=== PATIENT | male | born 1950 | race Caucasian/White ===

== ENCOUNTER 2023-05-10 07:30 | Outpatient (CLI) | payer MEDICARE, SELFPAY ==
--- NOTE | ~2023-05-10 | XR_ITS ---
XR chest 2V 05/10/2023 08:25 Indication: Incisional hernia without obstruction Procedure: 2 view chest Comparison: No prior studies for comparison. Findings: Status post median sternotomy for CABG. Heart size normal. No focal air space disease, pulm onary edema, pleural effusion or suspected pneumothorax. Impression: 1: No acute cardiopulmonary disease. Reviewed, dictated and finalized at location B. Impression: 1: No acute cardiopulmonary disease.
--- NOTE | 2023-05-10 07:53 | ECG_ITS ---
Measurements Intervals [place] Rate: 60 P: 6 UT: 181 QRS: 15 QRSD: 110 T: 33 QT: 416 QTc: 418 Interpretive Statements SINUS RHYTHM DELAYED PRECORDIAL R/S TRANSITION BASELINE ARTIFACT- I, II, III, AVR, AVL, AVF BORDERLINE ECG NO PREVIOUS ECG AVAILABLE FOR COMPARISON Electronically Signed On 05-10-2023 8:14:48 CDT by Usman Kiran D.O.
[2023-05-10 08:31] LABS: Basophils Absolute Auto 0.1 K/mm3 (0.0-0.1); Basophils Percent Auto 0.5 % (0.2-1.2); Eosinophils Absolute Auto 0.4 K/mm3 (0-0.3); Eosinophils Percent Auto 3.8 % (0-4.4); Hematocrit 48.1 % (42.0-52.0); Hemoglobin 15.8 g/dL (14.0-18.0); Immature Granulocyte Absolute 0.03 K/mm3 (0.00-0.031); Immature Granulocyte Percent A 0.3 % (0-0.5); Mean Corpuscular HGB Conc 32.8 g/dl (32-36); Mean Corpuscular Hemoglobin 31.1 pg (26-34); Mean Corpuscular Volume 94.7 fl (80-100); Mean Platelet Volume 8.8 fl (7.4-10.4); Monocytes Absolute Auto 0.7 K/mm3 (0.1-0.6); Monocytes Percent Auto 7.5 % (2.6-8.5); Neutrophils Absolute Auto 5.6 K/mm3 (1.3-6.7); Neutrophils Percent Auto 60.9 % (45.5-73.1); Platelet Count Result 250 k/mm3 (150-375); Red Blood Count 5.08 M/mm3 (4.6-6.20); Red Cell Distribution Width 14.3 % (11.5-14.5); White Blood Count 9.3 K/mm3 (4.5-10.0)
[2023-05-10 08:40] LABS: Anion Gap 9 mmol/L (8-16); Blood Urea Nitrogen 18 mg/dL (9-20); Calcium 8.9 mg/dL (8.4-10.2); Carbon Dioxide 26 mmol/L (22-30); Chloride 103 mmol/L (98-107); Estimated Glomerular Filt Rate 54; Glucose 124 mg/dL (65-110); Potassium 4.3 mmol/L (3.4-5.0); Sodium 138 mmol/L (137-145)
== END 2023-05-10 07:31 | disposition home or self-care (01) ==
LOC: ANHSURGERY 07:35
PROVIDERS: PCP Internal Medicine; Visit Provider Surgery
DX: K43.2 Incisional hernia without obstruction or gangrene (principal)
CPT/HCPCS: 36415; 71046; 80048; 85025; 86850; 86900; 86901; 93005

== ENCOUNTER 2023-05-18 14:45 | Observation (INO) | payer MEDICARE, SELFPAY ==
--- NOTE | 2023-05-08 12:41 | PC.NURSE ---
Report to the Outpatient Waiting Room, entrance under the green pavilion located off [facility], at time ___30____ on date _05/17/23 . Planned Procedure Time: __829 . Time changes happen often and if your time is changed the preop area will call you the afternoon before. - You and your visitor will be asked to self-screen and do not enter if you have any COVID symptoms. - A mask is optional within the hospital at this time. Patients may have clear liquids (water, carbonated beverages, clear teas, apple juice) until 3 hours prior to surgery with a maximum of 20 ounces. - No food from midnight until time of surgery - Infants may have breast milk until 4 hours before surgery, infant formula 6 hours prior to surgery. - Children will be allowed to drink immediately following surgery. If applicable, please bring a bottle or sippy cup to assist with drinking. Juice, water, soda, and popsicles are readily available. For infants on formula, please bring formula the day of surgery. Pacifiers are allowed. Take the following medications with a SIP of water the morning of surgery: ____AMLODIPINE,METOPROLOL DO NOT STOP ANY OF YOUR OTHER PRESCRIPTION MEDICATIONS PRIOR TO SURGERY ?EXCEPT THE FOLLOWING Medications to discontinue per physician ___ALL VITAMINS AND SUPPLEMENTS 3 DAYS PRE OP.LAST DOSE 05/13/23 HIBICLENS SHOWER MORNING OF SURGERY Please no make-up, nail indian, hairspray, perfume, deodorant, or body powder the day of surgery. No jewelry (including any body piercings) or valuables the day of surgery, leave them at home. Please take a shower or bath the night before, or the morning of, surgery with an antibacterial soap. Wear comfortable, loose fitting clothing. Children are encouraged to wear pajamas. - Jewelry must be removed prior to entering the operating room. Rings and piercings that are not removed may be cut off. - The hospital will not accept responsibility for valuables. - Please leave all valuables, including medications, at home the day of surgery. If you are going home after surgery, a licensed regional driver must drive you home. - NO public transportation without another adult if you receive anesthesia. - We recommend that an adult stay with you for 24 hours following discharge. - We also recommend that you do not drive, make important decision, drink alcoholic beverages, or take any drugs that were not prescribed by your health care provider for at least 24 hours after your discharge time. For Pediatric surgeries, we recommend two adults accompany the child home. Follow any additional instructions given to you from your surgeon. If you or anyone in your household have experienced Covid symptoms in the past week, please notify your surgeon or the nurse liaison at the phone number below for possible testing. Telephone instructions given to _PATIENT AND WIFE and asked if any additional questions and then verbalized understanding. Patient advised to call surgeon office or pre surgery nurse liaison [phone] if any additional questions.
[2023-05-08 12:51] VITALS: BMI 33.9
--- NOTE | 2023-05-15 18:00 | PM.IMHP ---
H&P: HPI History of Present Illness Date/Time: 05/15/23 18:00 Chief Complaint: Abdominal hernias Narrative: Patient is a 72-year-old man who, in 2016, had coronary artery bypass grafting. Eight days after his bypass surgery, he developed a perforated gastric ulcer and underwent open abdominal repair. He recovered from that surgery but eventually went on to notice abdominal bulging particularly on the left side. He was seen in [place] and had a CT scan of the abdomen and pelvis. I received the disc of that CT scan. It shows multiple hernias. The largest has a 6.7 cm defect and a 2nd hernia has a 6 cm defect. He appears to have some chronically eviscerated small bowel but no signs of obstruction. The hernias have been getting larger and are uncomfortable. He was seen in the office and is now taken to surgery for open repair with mesh and posterior component separation. Review of Systems Review of Systems: All systems reviewed & are unremarkable except as noted in HPI and below (HPI and those items noted below) Constitutional: Constitutional: Denies chills and Denies fever(s) Cardiovascular: Cardiovascular: Denies chest pain, Denies diaphoresis, Denies dyspnea and Denies paroxysmal nocturnal dyspnea Respiratory: Respiratory: Denies chest congestion, Denies cough and Denies dyspnea Integumentary/Breasts: Skin/Breast: Denies lesions and Denies rash PMFSH Past Medical History Medical History (Updated 05/15/23 @ 18:09 by Tk Stephen MD) Heart attack Hypertension Surgical History Surgical History (Updated 05/15/23 @ 18:08 by Tk Stephen MD) Perforated gastric ulcer Surgery 07/2017 S/P triple vessel bypass Social History Social History Smoking status: Never smoker Alcohol intake: never Substance use: never Living arrangements: with family Occupation/Education: retired Gender identity (if verbalized by the patient): Male Sexual Orientation (if Verbalized by the Patient): Straight or Heterosexual Spiritual care concerns: No Meds Home Medications and Allergies Home Medications Medication Instructions Recorded Confirmed Type aspirin 81 mg capsule 81 mg PO DAILY 03/16/23 05/08/23 History folic acid 400 mcg tablet 0.4 mg PO BID 03/16/23 05/08/23 History lisinopril 40 mg tablet 40 mg PO DAILY 03/16/23 05/08/23 History magnesium oxide 400 mg PO DAILY 03/16/23 05/08/23 History metoprolol tartrate 100 mg tablet 100 mg PO BID 03/16/23 05/08/23 History poqqdhce-zjt-[id number] 150 mcg-vit K1 1 tablet PO DAILY 03/16/23 05/08/23 History 30 mcg-lycop 300 mcg-lutein tablet (Centrum Minis Men 50 Plus) omeprazole 40 mg capsule,delayed 40 mg PO DAILY 03/16/23 05/08/23 History release rosuvastatin 40 mg tablet 40 mg PO DAILY 03/16/23 05/08/23 History vitamin E mixed 400 unit capsule 400 unit PO DAILY 03/16/23 05/08/23 History amlodipine 10 mg tablet 10 mg PO DAILY 05/08/23 05/08/23 History Allergies Allergy/AdvReac Type Severity Reaction Status Date / Time No Known Allergies Allergy Verified 05/08/23 12:29 Exam Const: General: comfortable, no acute distress, alert and awake HENMT: Head: normocephalic and atraumatic Mouth: Yes Normal oral and palatal mucosa present Eyes: Conjunctivae: conjunctivae normal Pupils: Equal, round and reactive pupils present EOM: EOMs intact bilaterally Neck: Neck: normal visual inspection, no lymphadenopathy and nontender Chest: Chest palpation & inspection: abnormal inspection of the chest (Median sternotomy scar), no tenderness and No rash Resp: Effort & Inspection: normal respiratory effort Auscultation: clear to auscultation bilaterally Cardio: Rate: regular rate Rhythm: regular rhythm Heart sounds: no gallops, no murmurs and no rubs GI: Inspection: non-distended, scar (Upper abdominal midline scar) and visible herniation GI Palp: Yes Soft to palpation, No Tenderness to palpation
[2023-05-17] VITALS (17 sets, daily range): BP systolic 101–140; BP diastolic 39–107; PULSE 65–74; RESP 14–18; TEMP 36.2–37.2; O2SAT 92–100
[2023-05-17] MEDS: KETOROLAC 15 MG/ML VIAL (*BKC) IV PUSH (07:00)
[2023-05-17] MEDS: LACTATED RINGERS 1,000 ML 30 ML IV CONT ×2 (07:00→12:47)
[2023-05-17] MEDS: ACETAMINOPHEN 500 MG TABLET 1000 MG PO (07:00)
--- NOTE | 2023-05-17 08:14 | P.PNAN_ITS ---
Anes - Initial Pre Proc Eval Procedure: Operation Date: 05/17/23 08:30 Proposed Procedures p Incisional Hernia Repair with Mesh, Bilateral Posterior Component Separation - Tk Stephen MD Date/Time: 05/17/23 08:14 Surgeon: Tk Stephen MD Pre Op Diagnosis: incisional hernia Patient Data Age: 72 Gender: M Height: 1.83 m Weight: 113.4 kg Allergies Allergy/AdvReac Type Severity Reaction Status Date / Time No Known Allergies Allergy Verified 05/17/23 08:16 Home Medications Medication Instructions Recorded Confirmed Type aspirin 81 mg capsule 81 mg PO DAILY 03/16/23 05/08/23 History folic acid 400 mcg tablet 0.4 mg PO BID 03/16/23 05/08/23 History lisinopril 40 mg tablet 40 mg PO DAILY 03/16/23 05/08/23 History magnesium oxide 400 mg PO DAILY 03/16/23 05/08/23 History metoprolol tartrate 100 mg tablet 100 mg PO BID 03/16/23 05/08/23 History femqdlon-xov-mvhxm 150 mcg-vit K1 1 tablet PO DAILY 03/16/23 05/08/23 History 30 mcg-lycop 300 mcg-lutein tablet (Centrum Minis Men 50 Plus) omeprazole 40 mg capsule,delayed 40 mg PO DAILY 03/16/23 05/08/23 History release rosuvastatin 40 mg tablet 40 mg PO DAILY 03/16/23 05/08/23 History vitamin E mixed 400 unit capsule 400 unit PO DAILY 03/16/23 05/08/23 History amlodipine 10 mg tablet 10 mg PO DAILY 05/08/23 05/08/23 History Patient hx anesthesia problems: none Family hx anesthesia problems: none Results Review: All pre-operative results and documents have been reviewed as part of the pre- operative evaluation. [facility] Past Medical History Medical History (Updated 05/15/23 @ 18:09 by Tk Stephen MD) Heart attack Hypertension Surgical History Surgical History (Updated 05/15/23 @ 18:08 by Tk Stephen MD) Perforated gastric ulcer Surgery 07/2017 S/P triple vessel bypass Social History Social History Smoking status: Never smoker Alcohol intake: never Substance use: never Living arrangements: with family Occupation/Education: retired Gender identity (if verbalized by the patient): Male Sexual Orientation (if Verbalized by the Patient): Straight or Heterosexual Spiritual care concerns: No Anes - Eval Final PreProcedure Day of Procedure 05/17/23 08:14 Patient weight: obese Heart: regular rate and rhythm Lungs: clear to auscultation Airway: Mallampati scale class II Neurological: alert and oriented Last oral intake: >/= 8 hours ASA classification: III Emergent: no Anesthetic plan: proceed Anesthesia type and monitoring: general ETT and standard monitoring Results Review: All pre-operative results and documents have been reviewed as part of the pre- operative evaluation. Informed Consent: The patient's anesthetic plan and its attendant risks and benefits were discussed with the patient/family/POA. Questions were solicited and answers provided to the satisfaction of the patient/family/POA.
--- NOTE | 2023-05-17 08:20 | WPDHPUPDATE1 ---
History and Physical Update Update Date/Time: 05/17/23 08:20 History and Physical has been reviewed, including an updated exam of the patient. There are NO changes in the patient's condition. Risks, benefits, and alternatives have been discussed and questions answered. Patient agrees to proceed with procedure.
[2023-05-17] MEDS: ceFAZolin 2 GM/D5W 50 ML 2 GM/50 ML BAG IVPB (08:39)
[2023-05-17] MEDS: ceFAZolin SODIUM 1 GM VIAL IV PUSH (12:30)
--- NOTE | 2023-05-17 13:02 | W.PM.PROC2 ---
Procedure Note - Detailed Date of Procedure 05/17/23 Pre-op Diagnosis incisional hernia Post-op Diagnosis Same Procedure Performed Repair incisional hernia with mesh, bilateral transversus myofascial flap advancement, 10 cm on the left, 3 cm on the right. Surgeon Tk Stephen MD Cloth Cutting Machine Operator Allie Alatorre, MARILEE Anesthesia General Indications Patient had perforated stomach ulcer in 2017 about a week after coronary bypass surgery. He recovered from this problem but went on to develop several incisional hernias with chronic evisceration in the left side of the abdomen. He is having pain particularly in the herniated mass on the left side of the abdomen. He is taken to surgery now for hernia repair with posterior component separation. Findings Patient had at least 3 large incisional hernias. They were all above the umbilicus and stretched nearly to the xiphoid. The predominant defect was on the left side of the abdomen resulting in flap advancement on that side of 10 cm but the right side only 3 cm. Two pieces of soft polypropylene mesh were placed. These were placed in valarie fashion providing excellent overlap of the hernias. Description of Procedure Patient was taken to surgery and induced into general anesthesia. Campbell catheter was placed. The abdomen was prepped and draped. His previous scar was excised from the abdominal skin and discarded. Cautery was used for hemostasis. We dissected a short ways into the subcutaneous and encountered the large hernia sac that was predominantly on the left side of midline. I extended the initial incision a few cm caudal to the umbilicus. I then dissected around the large supraumbilical hernia that had chronic evisceration. The hernia sac was opened and excised. The sac was discarded. I opened the fascia below this hernia on down below the umbilicus in the midline. I then went back and dissected out the other 2 hernias. Some anterior abdominal wall adhesions were encountered and were taken down using some blunt dissection as well as cautery. The other 2 hernia sacs were excised and discarded as well. Eventually the undersurface of the anterior abdominal wall was clear of all adhesions and we were able to begin the hernia repair. I started on the patient's right side, working on his left side abdominal wall. The posterior rectus fascia was incised very close to the midline. I then dissected some more the posterior rectus fascia above and below this initial opening and opened this as well. I then began dissecting, in that area, the posterior rectus fascia from the rectus muscle. I was then able to place a finger between the posterior rectus fascia and the rectus muscle close to the midline and opened the cephalad and caudad posterior rectus fascia in similar fashion. I dissected more of the posterior rectus fascia off the rectus abdominus muscle. I took care to preserve the neural innervation to the rectus muscle at its lateral aspect. I then continued this dissection of the patient's left side abdominal wall cephalad such that the posterior rectus fascia was divided up to the xiphoid and also some dissection posterior to the xiphoid process was carried out. The posterior rectus fascia was dissected off the rectus muscle at this cephalad aspect as well. I then continued this dissection of the posterior rectus fascia, dividing the posterior rectus fascia caudally. This dissection was able to be carried out such that I was able to dissect in the retropubic space. This completed the retro rectus dissection on the patient's left side. I then went to the patient's left side and began the same procedure on the right side of his abdominal wall. The posterior rectus fascia was opened near the midline. Careful dissection was used to extend this incision cephalad and caudad. Additional careful dissection was used to separate the posterior rectus fascia from the undersurface of the rectus muscle. Again, care was ta
[2023-05-17] MEDS: fentaNYL CITRATE INJ (*CRX) 100 MCG/2 ML VIAL 25 MCG IV PUSH ×5 (13:11→14:32)
--- NOTE | 2023-05-17 15:15 | ADMGEN ---
This patient, Jules Quinonez, was admitted to [facility] Surg Room 309-01. Patient/family oriented to hospital policies and general routines including ID bracelet, bed and alarms, visiting hours, pain management, procedures, bathroom and other care routines, personal items, smoking policy, room service/diet, and visiting hours. Information on how to activate the Rapid Response Team has been discussed. Patient/Family are encouraged to report perceived risks to care and to ask questions if they do not understand what they are told or what they should do.
[2023-05-17] MEDS: LACTATED RINGERS 1,000 ML 100 ML IV CONT (15:44)
[2023-05-17] MEDS: IBUPROFEN IV 800 MG/200 ML 800 MG/200 ML BAG 400 MG IVPB (15:52)
[2023-05-17] MEDS: HYDROcodone/acetaminophen (*CRX) 10-325 MG TABLET 1 TAB PO (18:00)
[2023-05-17] MEDS: METOPROLOL TARTRATE 50 MG TAB 100 MG PO (20:28)
[2023-05-17] MEDS: SENNA/DOCUSATE SODIUM TABLET 2 TAB PO (20:30)
[2023-05-17] MEDS: ENOXAPARIN 30 MG/0.3 ML SYRINGE SUB-Q (20:30)
[2023-05-18] VITALS (7 sets, daily range): BP systolic 111–134; BP diastolic 69–73; PULSE 71–87; RESP 12–20; TEMP 36.4–37.1; O2SAT 93–100
[2023-05-18] MEDS: LACTATED RINGERS 1,000 ML 100 ML IV CONT ×2 (01:40→12:26)
[2023-05-18] MEDS: HYDROcodone/acetaminophen (*CRX) 10-325 MG TABLET 1 TAB PO ×3 (01:48→16:27)
[2023-05-18 07:30] LABS: Hematocrit 42.2 % (42.0-52.0); Hemoglobin 14.1 g/dL (14.0-18.0); Mean Corpuscular HGB Conc 33.4 g/dl (32-36); Mean Corpuscular Hemoglobin 31.3 pg (26-34); Mean Corpuscular Volume 93.6 fl (80-100); Mean Platelet Volume 8.9 fl (7.4-10.4); Platelet Count Result 216 k/mm3 (150-375); Red Blood Count 4.51 M/mm3 (4.6-6.20); Red Cell Distribution Width 14.5 % (11.5-14.5); White Blood Count 16.3 K/mm3 (4.5-10.0)
[2023-05-18 07:57] LABS: Anion Gap 4 mmol/L (8-16); Blood Urea Nitrogen 23 mg/dL (9-20); Calcium 8.2 mg/dL (8.4-10.2); Carbon Dioxide 30 mmol/L (22-30); Chloride 102 mmol/L (98-107); Estimated CRCL calculation 60 ml/min; Estimated Glomerular Filt Rate 54; Glucose 120 mg/dL (65-110); Potassium 4.6 mmol/L (3.4-5.0); Sodium 136 mmol/L (137-145)
--- NOTE | 2023-05-18 08:56 | WPDANESPN ---
Anes - Prog Note Post-Op Date/Time: 05/18/23 08:56 Cardiovascular status: normal Respiratory status: normal Airway patency: baseline Mental status: baseline Post-Op hydration status: normal Vital Signs: Last Vital Signs Temp 37.1 C 05/18/23 04:00 Pulse 73 05/18/23 04:00 Resp 20 05/18/23 04:00 BP 117/69 05/18/23 04:00 Pulse Ox 94 05/18/23 04:00 O2 Del Method Nasal Cannula 05/18/23 00:03 O2 Flow Rate 1 05/18/23 00:03 FiO2 24 05/18/23 00:03 Pain Score (VAS): 11/04 I/O: Intake & Output 05/17/23 05/18/23 05/18/23 23:59 07:59 15:59 Intake Total 250 1000 Output Total 250 332 Balance 0 668 Laboratory Tests 05/18/23 07:08 05/18/23 07:08 05/18/23 07:08 WBC 16.3 H RBC 4.51 L Hgb 14.1 Hct 42.2 MCV 93.6 MCH 31.3 MCHC 33.4 RDW 14.5 Plt Count 216 MPV 8.9 Sodium 136 L Potassium 4.6 Chloride 102 Carbon Dioxide 30 Anion Gap 4 L BUN 23 H Creatinine 1.30 Estim Creat Clear Calc 60 Estimated GFR 54 L Glucose 120 H Calcium 8.2 L Post-procedural complaints: none Patient Feedback: Patient satisfied with anesthetic care.
[2023-05-18] MEDS: polyethylene glycoL 3350 17 GM POWD.PACK PO (09:10)
[2023-05-18] MEDS: ASPIRIN 81 MG CHEWABLE TABLET PO (09:10)
[2023-05-18] MEDS: ROSUVASTATIN 10 MG TABLET 40 MG PO (09:10)
[2023-05-18] MEDS: FOLIC ACID 0.4 MG TABLET PO ×2 (09:10→16:27)
[2023-05-18] MEDS: lisinopriL 20 MG TABLET 40 MG PO (09:11)
[2023-05-18] MEDS: MAGNESIUM OXIDE 400 MG TABLET PO (09:11)
[2023-05-18] MEDS: amLODIPine BESYLATE 5 MG TABLET 10 MG PO (09:11)
[2023-05-18] MEDS: ENOXAPARIN 40 MG/0.4 ML SYRINGE SUB-Q (09:11)
[2023-05-18] MEDS: METOPROLOL TARTRATE 50 MG TAB 100 MG PO ×2 (09:11→22:03)
--- NOTE | 2023-05-18 10:11 | PM.PNGS ---
Progress Note: A&P Assessment and Plan (1) Incisional hernia: Qualifiers: Obstruction and gangrene presence: without obstruction or gangrene Qualified Code(s): K43.2 - Incisional hernia without obstruction or gangrene Code(s): K43.2 - Incisional hernia without obstruction or gangrene Status: Chronic Assessment and Plan: Postop day 1 and doing well. Will get patient up to chair and try ambulating today. Will remove Campbell catheter later today if he tolerates activity. Advance to low fiber diet Wean off O2 (2) Hx of CABG: Code(s): Z95.1 - Presence of aortocoronary bypass graft Status: Chronic (3) History of AL (myocardial infarction): Code(s): I25.2 - Old myocardial infarction Status: Chronic (4) Perforated gastric ulcer: Qualifiers: Gastric ulcer chronicity: unspecified ulcer chronicity Qualified Code(s): K25.5 - Chronic or unspecified gastric ulcer with perforation Code(s): K25.5 - Chronic or unspecified gastric ulcer with perforation Status: Chronic Assessment and Plan: History of perforated gastric ulcer in 2017. Continue PPI (5) Hypertension: Code(s): I10 - Essential (primary) hypertension Status: Chronic Assessment and Plan: BP stable. Continue home medications. Plan I have discussed the patient's case and plan of care with Dr. Stephen. Subjective Subjective Date/Time Seen: 05/18/23 10:11 Post Op day: 1 (Repair incisional hernia with mesh, bilateral transversus myofascial flap advancement) Patient reports: tolerating liquids well, flatus (little), no bowel movement and afebrile Interval history: Patient doing well today. Reports having expected post-op soreness, but no significant abdominal pain. No nausea, vomiting, or bloating. He has tolerated clear liquids, which he also had for breakfast. He is passing some flatus. Has sat on the edge of the bed, but not been up ambulating yet. MALU drain with nearly no output from the RLQ drain and 80 cc output from the LLQ drain overnight and 150 cc total out yesterday after surgery. Review of Systems Review of Systems: All systems reviewed & are unremarkable except as noted in HPI and below Constitutional: Constitutional: Reports no additional constitutional complaints, Denies chills, Denies fever(s) and Denies headache(s) Cardiovascular: Cardiovascular: Reports no additional cardiovascular complaints, Denies chest pain and Denies pedal edema Respiratory: Respiratory: Reports no additional respiratory complaints, Denies cough and Denies dyspnea Gastrointestinal: Gastrointestinal: Reports as per HPI and Reports no additional gastrointestinal complaints Exam Const: General: comfortable, no acute distress and awake Orientation/consciousness: patient oriented x3 Resp: Effort & Inspection: normal respiratory effort Auscultation: clear to auscultation bilaterally Cardio: Rate: regular rate Rhythm: regular rhythm GI: Inspection: non-distended, incision (midline dressing dry and intact) and other (RLQ MALU with no drainage, LLQ MALU drain with sanguineous drainage) GI Palp: Yes Soft to palpation and Yes Tenderness to palpation present (GI) Auscultation: normal bowel sounds Neuro: General: moves all extremities and no focal motor deficits Extrem: General: no calf tenderness and no edema Psych: Mental Status: mental status grossly normal Insight: Good insight present (Psych) Objective Data Vital Signs Vital Signs: Vital Signs - 24 hr 05/17/23 12:47 05/17/23 13:00 05/17/23 13:15 Temperature 99.0 F Pulse Rate 65 67 74 Respiratory Rate 15 18 16 Blood Pressure 102/39 L 102/53 L 114/69 Pulse Oximetry 96 97 94 Oxygen Delivery Simple Face Mask Simple Face Mask Room Air Oxygen Flow Rate 8 8 Fraction of Inspired Oxygen 05/17/23 13:30 05/17/23 13:45 05/17/23 14:00 Temperature Pulse Rate 74 70 73 Respiratory Rate 18 16 16 Blood Pressure 101/46
[2023-05-18] MEDS: PANTOPRAZOLE SODIUM IV 40 MG VIAL IV PUSH (12:27)
--- NOTE | 2023-05-18 15:02 | PC.NURSE ---
O2 saturation 96% after 30 minutes on RA. Pt offers no complaints.
--- NOTE | 2023-05-18 16:00 | PC.NURSE ---
Shannan DC'D as ordered. pt tolerated well. Offers no complaints.
[2023-05-18] MEDS: SENNA/DOCUSATE SODIUM TABLET 2 TAB PO (22:03)
[2023-05-19 07:19] LABS: Hematocrit 45.7 % (42.0-52.0); Hemoglobin 14.9 g/dL (14.0-18.0); Mean Corpuscular HGB Conc 32.6 g/dl (32-36); Mean Corpuscular Hemoglobin 31.1 pg (26-34); Mean Corpuscular Volume 95.4 fl (80-100); Mean Platelet Volume 9.1 fl (7.4-10.4); Platelet Count Result 257 k/mm3 (150-375); Red Blood Count 4.79 M/mm3 (4.6-6.20); Red Cell Distribution Width 14.7 % (11.5-14.5)
[2023-05-19 07:28] VITALS: BP 155/90; PULSE 81; RESP 16; TEMP 37.1; O2SAT 94
[2023-05-19 07:28] LABS: Potassium 4.4 mmol/L (3.4-5.0)
[2023-05-19 07:30] LABS: Anion Gap 9 mmol/L (8-16); Blood Urea Nitrogen 22 mg/dL (9-20); Calcium 8.9 mg/dL (8.4-10.2); Carbon Dioxide 27 mmol/L (22-30); Chloride 100 mmol/L (98-107); Estimated CRCL calculation 65 ml/min; Estimated Glomerular Filt Rate 60; Glucose 127 mg/dL (65-110); Sodium 136 mmol/L (137-145)
[2023-05-19] MEDS: HYDROcodone/acetaminophen (*CRX) 10-325 MG TABLET 1 TAB PO ×2 (07:36→15:28)
[2023-05-19] MEDS: ASPIRIN 81 MG CHEWABLE TABLET PO (08:09)
[2023-05-19] MEDS: amLODIPine BESYLATE 5 MG TABLET 10 MG PO (08:09)
[2023-05-19] MEDS: FOLIC ACID 0.4 MG TABLET PO ×2 (08:10→17:12)
[2023-05-19] MEDS: lisinopriL 20 MG TABLET 40 MG PO (08:10)
[2023-05-19] MEDS: MAGNESIUM OXIDE 400 MG TABLET PO (08:10)
[2023-05-19 08:11] VITALS: PULSE 80
[2023-05-19] MEDS: polyethylene glycoL 3350 17 GM POWD.PACK PO (08:11)
[2023-05-19] MEDS: PANTOPRAZOLE SODIUM IV 40 MG VIAL IV PUSH (08:11)
[2023-05-19] MEDS: METOPROLOL TARTRATE 50 MG TAB 100 MG PO ×2 (08:11→20:21)
[2023-05-19] MEDS: ENOXAPARIN 40 MG/0.4 ML SYRINGE SUB-Q (08:11)
--- NOTE | 2023-05-19 12:11 | PM.PNGS ---
Progress Note: A&P Assessment and Plan (1) Incisional hernia: Qualifiers: Obstruction and gangrene presence: without obstruction or gangrene Qualified Code(s): K43.2 - Incisional hernia without obstruction or gangrene Code(s): K43.2 - Incisional hernia without obstruction or gangrene Status: Chronic Assessment and Plan: Doing well after repair of multiple incisional hernias and significant myofascial flap advancement. Voiding without difficulty. Tolerating low fiber diet. Will advance to regular diet. Recheck labs again in a.m.. Start dressing changes. Making good progress. Subjective Subjective Date/Time Seen: 05/19/23 12:11 Post Op day: 2 Patient reports: no new complaints, pain is less (Still a lot of soreness but able to ambulate), voiding w/o difficulty, bowel movement and afebrile Exam Const: General: comfortable, no acute distress and well nourished Orientation/consciousness: patient oriented x3 GI: Inspection: non-distended and incision (Dry and healing well) GI Palp: Yes Soft to palpation, Yes Tenderness to palpation present (GI) (Expected incisional tenderness), No Hernia present and No Palpable mass present Auscultation: Hypoactive bowel sounds present Objective Data Vital Signs Vital Signs: Vital Signs - 24 hr 05/18/23 16:42 05/18/23 23:30 05/19/23 07:28 Temperature 36.8 C 36.8 C 37.1 C Pulse Rate 76 87 81 Respiratory Rate 16 12 16 Blood Pressure 117/73 111/72 155/90 H Pulse Oximetry 96 100 94 Oxygen Delivery 05/19/23 08:11 05/19/23 08:10 Temperature Pulse Rate 80 Respiratory Rate Blood Pressure Pulse Oximetry Oxygen Delivery Room Air Intake/Output Intake/Output: Intake & Output 05/16/23 05/17/23 05/18/23 05/19/23 23:59 23:59 23:59 23:59 Intake Total 1200 2240 120 Output Total 650 987 Balance 550 1253 120 Meds/Results Medications: Active Medications Generic Name Dose Route Start Last Admin Trade Name Freq PRN Reason Stop Dose Admin Acetaminophen 500 mg 05/17/23 14:57 Acetaminophen 500 Mg Tablet PO Q6H PRN Mild Pain (1-3) or Fever Hydrocodone Bitart/Acetaminophen 1 tab 05/17/23 14:57 Hydrocodone/Acetaminophen (*Crx) 5-325 Mg Tablet PO Q4H PRN Pain Rated 4-6 Hydrocodone Bitart/Acetaminophen 1 tab 05/17/23 14:57 05/19/23 07:36 Hydrocodone/Acetaminophen (*Crx) 10-325 Mg Tablet PO 1 tab Q6H PRN Administration Pain Rated 7-10 Amlodipine Besylate 10 mg 05/18/23 09:00 05/19/23 08:09 Amlodipine Besylate 5 Mg Tablet PO 10 mg DAILY ALEXANDER Administration Aspirin 81 mg 05/18/23 08:00 05/19/23 08:09 Aspirin 81 Mg Chewable Tablet PO 81 mg DAILY@0800 ALEXANDER Administration Enoxaparin Sodium 40 mg 05/18/23 09:00 05/19/23 08:11 Enoxaparin 40 Mg/0.4 Ml Syringe SUB-Q 40 mg DAILY ALEXANDER Administration Folic Acid 0.4 mg 05/17/23 17:00 05/19/23 08:10 Folic Acid 0.4 Mg Tablet PO 0.4 mg BID ALEXANDER Administration Lactated Ringer's 1,000 mls @ 80 mls/hr 05/17/23 14:57 05/18/23 12:26 Lr - Lactated Ringers Iv IV CONT 100 mls/hr .[id number] ALEXANDER Administration Ibuprofen 800 mg in 200 mls @ 400 mls/hr 05/17/23 14:57 05/17/23 16:22 Caldolor 800 Mg/200 Ml IVPB Infused Q6H PRN Infusion Pain Rated 1-3 Lisinopril 40 mg 05/18/23 09:00 05/19/23 08:10 Lisinopril 20 Mg Tablet PO 40 mg DAILY ALEXANDER Administration Magnesium Oxide 400 mg 05/18/23 09:00 05/19/23 08:10 Magnesium Oxide 400 Mg Tablet PO 400 mg DAILY ALEXANDER Administration Metoprolol Tartrate 100 mg 05/17/23 21:00 05/19/23 08:11 Metoprolol Tartrate 50 Mg Tab PO 100 mg Q12HR ALEXANDER Administration Morphine Sulfate 2 mg 05/17/23 14:57 Morphine Sulfate (*Crx) 2 Mg/Ml Inj IV PUSH Q2H PRN Pain Rated 4-6 Morphine Sulfate 4 mg 05/17/23 14:57 Morphine Sulfate (*Crx) 4 Mg/Ml Inj IV PUSH Q2H PRN Pain Rated 7-10 Naloxone HCl 0.1 mg 05/17/
[2023-05-19] MEDS: LACTATED RINGERS 1,000 ML 100 ML IV CONT (13:21)
[2023-05-19 14:00] VITALS: BP 114/72; PULSE 75; RESP 16; TEMP 36.3; O2SAT 96
[2023-05-19 20:00] VITALS: PULSE 75; RESP 16; O2SAT 96
[2023-05-19] MEDS: SENNA/DOCUSATE SODIUM TABLET 2 TAB PO (20:21)
[2023-05-19] MEDS: ROSUVASTATIN 10 MG TABLET 40 MG PO (20:21)
[2023-05-19 22:00] VITALS: BP 148/79; PULSE 75; RESP 20; TEMP 35.8; O2SAT 94
[2023-05-20] MEDS: LACTATED RINGERS 1,000 ML 100 ML IV CONT (03:01)
[2023-05-20 04:56] VITALS: BP 159/97; PULSE 84; RESP 22; TEMP 36.2; O2SAT 98
[2023-05-20 05:48] LABS: Hematocrit 41.8 % (42.0-52.0); Hemoglobin 13.7 g/dL (14.0-18.0); Mean Corpuscular HGB Conc 32.8 g/dl (32-36); Mean Corpuscular Hemoglobin 30.9 pg (26-34); Mean Corpuscular Volume 94.4 fl (80-100); Mean Platelet Volume 8.8 fl (7.4-10.4); Platelet Count Result 238 k/mm3 (150-375); Red Blood Count 4.43 M/mm3 (4.6-6.20); Red Cell Distribution Width 14.6 % (11.5-14.5); White Blood Count 12.6 K/mm3 (4.5-10.0)
[2023-05-20 05:59] LABS: Anion Gap 6 mmol/L (8-16); Blood Urea Nitrogen 21 mg/dL (9-20); Calcium 8.5 mg/dL (8.4-10.2); Carbon Dioxide 26 mmol/L (22-30); Chloride 102 mmol/L (98-107); Estimated CRCL calculation 70 ml/min; Estimated Glomerular Filt Rate > 60; Glucose 122 mg/dL (65-110); Potassium 3.9 mmol/L (3.4-5.0); Sodium 134 mmol/L (137-145)
[2023-05-20 08:10] VITALS: PULSE 79
[2023-05-20] MEDS: amLODIPine BESYLATE 5 MG TABLET 10 MG PO (08:10)
[2023-05-20] MEDS: ASPIRIN 81 MG CHEWABLE TABLET PO (08:10)
[2023-05-20] MEDS: FOLIC ACID 0.4 MG TABLET PO ×2 (08:10→17:25)
[2023-05-20] MEDS: METOPROLOL TARTRATE 50 MG TAB 100 MG PO ×2 (08:10→21:29)
[2023-05-20] MEDS: MAGNESIUM OXIDE 400 MG TABLET PO (08:11)
[2023-05-20] MEDS: lisinopriL 20 MG TABLET 40 MG PO (08:11)
[2023-05-20] MEDS: polyethylene glycoL 3350 17 GM POWD.PACK PO (08:11)
[2023-05-20] MEDS: PANTOPRAZOLE 40 MG TABLET PO (08:11)
[2023-05-20] MEDS: HYDROcodone/acetaminophen (*CRX) 10-325 MG TABLET 1 TAB PO ×2 (08:12→14:58)
[2023-05-20] MEDS: ENOXAPARIN 40 MG/0.4 ML SYRINGE SUB-Q (08:20)
[2023-05-20 14:00] VITALS: BP 140/84; PULSE 71; RESP 16; TEMP 36.1; O2SAT 98
--- NOTE | 2023-05-20 17:38 | PM.PNGS ---
Progress Note: A&P Assessment and Plan (1) Incisional hernia: Qualifiers: Obstruction and gangrene presence: without obstruction or gangrene Qualified Code(s): K43.2 - Incisional hernia without obstruction or gangrene Code(s): K43.2 - Incisional hernia without obstruction or gangrene Status: Chronic Assessment and Plan: Continues to improve. Will DC right-sided MALU drain which is subcutaneous. Retro rectus drain will stay at least until tomorrow. No BM as yet but still on MiraLax and Senokot. Pain continues to improve and he is ambulating well. Hopefully can discharge tomorrow. Subjective Subjective Date/Time Seen: 05/20/23 17:38 Post Op day: 3 Patient reports: no new complaints, still having pain, tolerating a regular diet, no bowel movement and afebrile Review of Systems Review of Systems: All systems reviewed & are unremarkable except as noted in HPI and below (HPI) Exam Const: General: comfortable and no acute distress Orientation/consciousness: patient oriented x3 GI: Inspection: abdominal wall ecchymosis (Left of incision mid abdomen), non-distended, incision (Clean and dry, healing nicely), no visible herniation and other (Minimal output of old blood right MALU, left shows serosanguineous) GI Palp: Yes Soft to palpation, Yes Tenderness to palpation present (GI) (Appropriate incisional tenderness), No Guarding due to palpation present (GI), No Hernia present, No Palpable mass present and No Rebound tenderness present Neuro: General: patient oriented x3 and no focal motor deficits Extrem: General: no calf tenderness and no edema Psych: Affect: normal affect Insight: Good insight present (Psych) Judgement: Good judgement present (Psych) Objective Data Vital Signs Vital Signs: Vital Signs - 24 hr 05/19/23 20:00 05/19/23 22:00 05/20/23 04:56 Temperature 35.8 C L 36.2 C L Pulse Rate 75 75 84 Respiratory Rate 16 20 22 H Blood Pressure 148/79 H 159/97 H Pulse Oximetry 96 94 98 Oxygen Delivery Room Air Fraction of Inspired Oxygen 24 05/20/23 08:10 05/20/23 08:00 05/20/23 14:00 Temperature 36.1 C L Pulse Rate 79 71 Respiratory Rate 16 Blood Pressure 140/84 Pulse Oximetry 98 Oxygen Delivery Room Air Fraction of Inspired Oxygen Intake/Output Intake/Output: Intake & Output 05/17/23 05/18/23 05/19/23 05/20/23 23:59 23:59 23:59 23:59 Intake Total 1200 3240 1540 60 Output Total 650 987 32 30 Balance 550 2253 1508 30 Meds/Results Medications: Active Medications Generic Name Dose Route Start Last Admin Trade Name Freq PRN Reason Stop Dose Admin Acetaminophen 500 mg 05/17/23 14:57 Acetaminophen 500 Mg Tablet PO Q6H PRN Mild Pain (1-3) or Fever Hydrocodone Bitart/Acetaminophen 1 tab 05/17/23 14:57 Hydrocodone/Acetaminophen (*Crx) 5-325 Mg Tablet PO Q4H PRN Pain Rated 4-6 Hydrocodone Bitart/Acetaminophen 1 tab 05/17/23 14:57 05/20/23 14:58 Hydrocodone/Acetaminophen (*Crx) 10-325 Mg Tablet PO 1 tab Q6H PRN Administration Pain Rated 7-10 Amlodipine Besylate 10 mg 05/18/23 09:00 05/20/23 08:10 Amlodipine Besylate 5 Mg Tablet PO 10 mg DAILY ALEXANDER Administration Aspirin 81 mg 05/18/23 08:00 05/20/23 08:10 Aspirin 81 Mg Chewable Tablet PO 81 mg DAILY@0800 ALEXANDRE Administration Enoxaparin Sodium 40 mg 05/18/23 09:00 05/20/23 08:20 Enoxaparin 40 Mg/0.4 Ml Syringe SUB-Q 40 mg DAILY ALEXANDER Administration Folic Acid 0.4 mg 05/17/23 17:00 05/20/23 17:25 Folic Acid 0.4 Mg Tablet PO 0.4 mg BID ALEXANDER Administration Lactated Ringer's 1,000 mls @ 80 mls/hr 05/17/23 14:57 05/20/23 13:40 Lr - Lactated Ringers Iv IV CONT Not Given .[id number] ALEXANDER Ibuprofen 800 mg in 200 mls @ 400 mls/hr 05/17/23 14:57 05/17/23 16:22 Caldolor 800 Mg/200 Ml IVPB Infused Q6H PRN Infusion Pain Rated 1-3 Lisinopril 40 mg 05/18/23 09:00 05/20/23 08:11 Lisinopril
[2023-05-20 21:29] VITALS: PULSE 77
[2023-05-20] MEDS: SENNA/DOCUSATE SODIUM TABLET 2 TAB PO (21:29)
[2023-05-20] MEDS: ROSUVASTATIN 10 MG TABLET 40 MG PO (21:29)
[2023-05-20 22:00] VITALS: BP 145/63; PULSE 79; RESP 18; TEMP 36.4; O2SAT 96
[2023-05-21 06:00] VITALS: BP 153/86; PULSE 75; RESP 18; TEMP 36.3; O2SAT 95
[2023-05-21 07:03] LABS: Hematocrit 42.1 % (42.0-52.0); Hemoglobin 13.5 g/dL (14.0-18.0); Mean Corpuscular HGB Conc 32.1 g/dl (32-36); Mean Corpuscular Hemoglobin 30.5 pg (26-34); Mean Platelet Volume 8.9 fl (7.4-10.4); Platelet Count Result 251 k/mm3 (150-375); Red Blood Count 4.43 M/mm3 (4.6-6.20); Red Cell Distribution Width 14.6 % (11.5-14.5); White Blood Count 10.5 K/mm3 (4.5-10.0)
[2023-05-21 07:20] LABS: Anion Gap 7 mmol/L (8-16); Blood Urea Nitrogen 19 mg/dL (9-20); Calcium 8.3 mg/dL (8.4-10.2); Carbon Dioxide 25 mmol/L (22-30); Chloride 101 mmol/L (98-107); Estimated CRCL calculation 65 ml/min; Estimated Glomerular Filt Rate 60; Glucose 109 mg/dL (65-110); Sodium 133 mmol/L (137-145)
[2023-05-21 08:56] VITALS: PULSE 77
[2023-05-21] MEDS: MAGNESIUM OXIDE 400 MG TABLET PO (08:56)
[2023-05-21] MEDS: METOPROLOL TARTRATE 50 MG TAB 100 MG PO (08:56)
[2023-05-21] MEDS: polyethylene glycoL 3350 17 GM POWD.PACK PO (08:56)
[2023-05-21] MEDS: amLODIPine BESYLATE 5 MG TABLET 10 MG PO (08:56)
[2023-05-21] MEDS: lisinopriL 20 MG TABLET 40 MG PO (08:56)
[2023-05-21] MEDS: ASPIRIN 81 MG CHEWABLE TABLET PO (08:56)
[2023-05-21] MEDS: FOLIC ACID 0.4 MG TABLET PO (08:56)
[2023-05-21] MEDS: ENOXAPARIN 40 MG/0.4 ML SYRINGE SUB-Q (08:57)
[2023-05-21] MEDS: PANTOPRAZOLE 40 MG TABLET PO (08:57)
--- NOTE | 2023-05-21 11:45 | PM.DS ---
DS: Admitting Diagnosis Discharge Date 05/21/2023 Admitting Diagnosis Multiple wide-mouth incisional hernias History of myocardial infarction History of coronary artery bypass grafting Essential hypertension History perforated gastric ulcer status post surgical repair DS: Discharge Diagnosis Discharge Diagnosis (1) Incisional hernia: Qualifiers: Obstruction and gangrene presence: without obstruction or gangrene Qualified Code(s): K43.2 - Incisional hernia without obstruction or gangrene Code(s): K43.2 - Incisional hernia without obstruction or gangrene Status: Chronic Assessment and Plan: Repaired with mesh and bilateral transversus abdominis myofascial flap advancement per Dr. Stephen on 05/17/2023 (2) Hypertension: Qualifiers: Hypertension type: primary hypertension Qualified Code(s): I10 - Essential (primary) hypertension Code(s): I10 - Essential (primary) hypertension Status: Chronic (3) History of ID (myocardial infarction): Code(s): I25.2 - Old myocardial infarction Status: Chronic (4) Hx of CABG: Code(s): Z95.1 - Presence of aortocoronary bypass graft Status: Chronic (5) Perforated gastric ulcer: Qualifiers: Gastric ulcer chronicity: unspecified ulcer chronicity Qualified Code(s): K25.5 - Chronic or unspecified gastric ulcer with perforation Code(s): K25.5 - Chronic or unspecified gastric ulcer with perforation Status: Chronic Assessment and Plan: Surgical incision to repair ulcer perforation was the index operation in which the hernias developed. This occurred in 2016, 8 days after coronary artery bypass grafting. DS: Summary Hospital Course Hospital Course: Patient was seen in the office in February. He had longstanding incisional hernias from abdominal surgery in 2017 for perforated ulcer. The left-sided hernia was particularly painful and uncomfortable. He had a CT scan done in [facility] and I had the opportunity to review the CT scan disc. He had at least 3 incisional hernias with wide defects. The symptomatic herniation showed chronic evisceration of small bowel. After discussion, patient was taken to the operating room on 05/17/2023. He underwent open incisional hernia repair with mesh with bilateral transversus abdominis myofascial release. Following surgery, he did very well. His Campbell catheter was removed on postop day 1. He was able to ambulate on postop day 1. But still was having quite a bit of pain. This gradually improved and he only required occasional oral analgesics for pain control. He had a subcutaneous MALU drain as well as a retro rectus MALU drain. Both were able to be removed prior to discharge. His wound was healing well and he was comfortable on oral medications. He had had a bowel movement and is eating well also. He is discharged on postop day 4., 05/21/2023. Status at Discharge Functional status at discharge: independent ambulation Overall status at discharge: patient is progressing back to baseline Time Spent with Patient Time attestation: Total time spent providing and/or coordinating discharge services: Time spent: Less than 30 minutes DS: Data Data Completed and Pending Labs on day of discharge: Labs from last 24 hours 05/21/23 06:16 WBC 10.5 H RBC 4.43 L Hgb 13.5 L Hct 42.1 MCV 95.0 MCH 30.5 MCHC 32.1 RDW 14.6 H Plt Count 251 MPV 8.9 Sodium 133 L Potassium 4.0 Chloride 101 Carbon Dioxide 25 Anion Gap 7 L BUN 19 Creatinine 1.20 Estim Creat Clear Calc 65 Estimated GFR 60 Glucose 109 Calcium 8.3 L Discharge Plan Discharge Attending physician on discharge: Tk Stephen Discharging Clinician: Tk Stephen Anticipated Discharge Date/Time: 05/21/23 11:55 Patient Disposition: Home, Self-Care Activity: may shower and no straining Diet: regular Wound Care Instructions: keep dressing dry, remove
== END 2023-05-21 13:08 | disposition home or self-care (01) ==
LOC: ANHSURGERY 14:54 → ANH3MEDSUR 14:54
PROVIDERS: Admitting Provider Surgery; PCP Internal Medicine; Visit Provider Surgery
PROC: 0WQF0ZZ Repair Abdominal Wall, Open Approach (ICD-10-PCS; CPT 49595; principal; 2023-05-17 08:30)
DX: K43.2 Incisional hernia without obstruction or gangrene (principal); I10 Essential (primary) hypertension; I25.2 Old myocardial infarction; Z95.1 Presence of aortocoronary bypass graft; Z87.11 Personal history of peptic ulcer disease; Z79.82 Long term (current) use of aspirin
CPT/HCPCS: 49595; 15734; 36415; 80048; 85027; A9270; C1781; C9113; G0378; J0690; J1100; J1170; J1650; J1741; J1885; J2250; J2405; J2704; J3010; J7120